=== PATIENT | female | born 1975 | race Caucasian/White ===

== ENCOUNTER → 2017-08-13 | Outpatient (CLI) | payer OTHER ==
[2017-08-13 16:36] LABS: Basophils # (A) 0.1 k/uL (0-0.2); Basophils % (A) 1 %; Eosinophils # (A) 0.2 k/uL (0-0.7); Eosinophils % (A) 2 %; HCT 45.7 % (34.0-46.0); HGB 13.9 gm/dL (11.4-16.0); Lymphocytes % (A) 21 %; MCH 27.5 pg (25.0-35.0); MCHC 30.4 g/dL (31.0-37.0); MCV 90.5 fL (80.0-100.0); Monocytes # (A) 0.6 k/uL (0-1.0); Monocytes % (A) 6 %; Neutrophils # (A) 6.7 k/uL (1.3-7.7); Neutrophils % (A) 68 %; Platelet Count 290 k/uL (150-450); RBC 5.05 m/uL (3.80-5.40); RDW 14.6 % (11.5-15.5); WBC 9.8 k/uL (3.8-10.6)
[2017-08-13 16:56] LABS: ALT 37 U/L (9-52); AST 20 U/L (14-36); Albumin 4.6 g/dL (3.5-5.0); Alkaline Phosphatase 101 U/L (38-126); Anion Gap 10 mmol/L; Blood Urea Nitrogen 19 mg/dL (7-17); Calcium 9.8 mg/dL (8.4-10.2); Carbon Dioxide 29 mmol/L (22-30); Chloride 101 mmol/L (98-107); Glucose 99 mg/dL (74-99); Potassium 4.3 mmol/L (3.5-5.1); Sodium 140 mmol/L (137-145); Total Bilirubin 0.3 mg/dL (0.2-1.3); Total Protein 7.9 g/dL (6.3-8.2)
[2017-08-13 17:13] LABS: T4, Free (Free Thyroxine) 1.13 ng/dL (0.78-2.19)
[2017-08-14 01:27] LABS: DNA Double-Stranded NEGATIVE (NEGATIVE); Gliadin AB IgA, Unit <0.2 U/mL
[2017-08-14 01:51] LABS: Vitamin D 25 Hydroxy 33.1 ng/mL (30.0-100.0)
[2017-08-14 01:52] LABS: Thyroid Peroxidase Antibodies <28.0 U/mL (0.0-60.0)
[2017-08-14 02:37] LABS: Iron Saturation 22.28 (12.00-45.00)
[2017-08-14 05:32] LABS: Streptolysin O Ab(ASO) 191 IU/mL (0-200)
[2017-08-14 05:55] LABS: DHEA Sulfate 336.6 ug/dL (26.0-430.0)
[2017-08-14 08:03] LABS: EBV - EA (IgG) 39.1 U/mL (<9.0)
[2017-08-14 12:29] LABS: Immunoglobulin M 46.9 mg/dL (40.0-280.0)
[2017-08-15 14:11] LABS: Strep DNASE B Antibody 90 U/mL (0-260)
[2017-08-15 16:29] LABS: Bartonella henselae Ab, IgG <1:64; Bartonella henselae Ab, IgM < 1:16
[2017-08-16 22:11] LABS: Herpes simplex I and/or II IgM 0.37 INDEX (<=0.90); Herpes simplex IgG I Ab 3.19 (< or = 0.90); Herpes simplex IgG II Ab 5.95 (< or = 0.90)
[2017-08-17 03:44] LABS: Mycoplasma IgM Antibody 0.23 INDEX (<=0.90)
[2017-08-17 10:18] LABS: Casein IgE Class CLASS 0
[2017-08-17 19:17] LABS: Soybean IgG 8.2 mcg/mL (< 2.0)
[2017-08-17 19:18] LABS: Casein IgG 26.8 mcg/mL (< 2.0); Corn IgG 16.1 mcg/mL (< 2.0); Walnut IgG 10.5 mcg/mL (< 2.0)
[2017-08-17 19:38] LABS: Codfish IgG 12.8 mcg/mL (< 2.0)
[2017-08-17 19:39] LABS: Cow's Milk IgG 73.1 mcg/mL (< 2.0); Peanut IgG 8.6 mcg/mL (< 2.0)
== END | disposition home or self-care (01) ==
LOC: LABWHC1 08-12 16:47
PROVIDERS: ATTEND Nurse Practitioner Family
DX: M35.9 Systemic involvement of connective tissue, unspecified (principal); R53.83 Other fatigue
CPT/HCPCS: 36415; 80053; 81291; 82024; 82139; 82306; 82530; 82533; 82607; 82627; 82728; 82784; 82785; 82787; 83516; 83520; 83540; 83550; 84439; 84443; 84481; 85025; 86001; 86003; 86038; 86060; 86160; 86215; 86225; 86376; 86611; 86628; 86644; 86645; 86663; 86664; 86665; 86666; 86694; 86695; 86696; 86738; 86753; 86790; 86800; 87798; 88184; 88185

== ENCOUNTER → 2018-01-27 | Outpatient (CLI) | payer OTHER ==
--- NOTE | 2018-01-28 07:51 | MM ---
Reason for exam: additional evaluation requested from prior study. Last mammogram was performed 6 months ago. History: Took hormonal contraceptives for 12 years beginning at age 16. Physical Findings: Nurse did not find any significant physical abnormalities on exam. MG 3D Diag Mammo W/Cad GOKUL Bilateral CC and MLO view(s) were taken. Prior study comparison: July 22, 2017, right breast MG 3d diag mammo w/cad RT. January 13, 2017, mammogram, performed at [place]. The breast tissue is heterogeneously dense. This may lower the sensitivity of mammography. Finding: There are typically benign round, regional, grouped calcifications in both breasts, greater in the right breast. There is no discrete abnormality. These results were verbally communicated with the patient and result sheet given to the patient on 01/27/18. ASSESSMENT: Benign, BI-RAD 2 RECOMMENDATION: Routine screening mammogram of both breasts in 1 year.
== END | disposition home or self-care (01) ==
LOC: RADMAMWWP 14:42
PROVIDERS: ATTEND Obstetrics & Gynecology
DX: R92.8 Other abnormal and inconclusive findings on diagnostic imaging of breast (principal)
CPT/HCPCS: 77062; 77066

== ENCOUNTER → 2018-03-17 | Outpatient (CLI) | payer OTHER ==
[2018-03-17 11:48] LABS: HCT 41.5 % (34.0-46.0); HGB 13.2 gm/dL (11.4-16.0); MCH 28.2 pg (25.0-35.0); MCHC 31.8 g/dL (31.0-37.0); MCV 88.8 fL (80.0-100.0); RBC 4.67 m/uL (3.80-5.40)
[2018-03-17 11:49] LABS: Basophils % (A) 1 %; Eosinophils # (A) 0.2 k/uL (0-0.7); Eosinophils % (A) 2 %; Lymphocytes # (A) 1.8 k/uL (1.0-4.8); Lymphocytes % (A) 30 %; Mean Platelet Volume 6.3; Monocytes # (A) 0.4 k/uL (0-1.0); Monocytes % (A) 6 %; Neutrophils # (A) 3.5 k/uL (1.3-7.7); Neutrophils % (A) 58 %; Platelet Count 308 k/uL (150-450); RDW 13.7 % (11.5-15.5)
[2018-03-17 12:03] LABS: ALT 30 U/L (9-52); AST 20 U/L (14-36); Albumin 4.2 g/dL (3.5-5.0); Alkaline Phosphatase 81 U/L (38-126); Anion Gap 8 mmol/L; Blood Urea Nitrogen 20 mg/dL (7-17); Calcium 9.3 mg/dL (8.4-10.2); Carbon Dioxide 29 mmol/L (22-30); Chloride 103 mmol/L (98-107); Glucose 98 mg/dL (74-99); Potassium 4.2 mmol/L (3.5-5.1); Sodium 140 mmol/L (137-145); Total Bilirubin 0.6 mg/dL (0.2-1.3); Total Protein 6.9 g/dL (6.3-8.2)
[2018-03-17 12:19] LABS: T4, Free (Free Thyroxine) 1.12 ng/dL (0.78-2.19)
== END | disposition home or self-care (01) ==
LOC: LABWHC1 10:51
PROVIDERS: ATTEND Nurse Practitioner Family
DX: R19.7 Diarrhea, unspecified (principal); R79.9 Abnormal finding of blood chemistry, unspecified
CPT/HCPCS: 36415; 80053; 82607; 84439; 84443; 85025; 87045; 87046; 87328; 87329

== ENCOUNTER → 2018-06-13 | Outpatient (CLI) | payer OTHER ==
--- NOTE | 2018-06-13 16:59 | XR ---
EXAMINATION TYPE: XR chest 2V DATE OF EXAM: 06/13/2018 COMPARISON: None HISTORY: 42-year-old female cough and congestion, shortness of breath, evaluate for pneumonia TECHNIQUE: Frontal and lateral views FINDINGS: Heart normal size. Aorta and pulmonary vasculature within normal limits. Mild diffuse interstitial pr ominence. No consolidation or pleural effusion. IMPRESSION: Mild interstitial prominence could represent bronchitis or asthma. No focal infiltrate to suggest pne umonia.
== END | disposition home or self-care (01) ==
LOC: RADXRMAIN 13:54
PROVIDERS: ATTEND Internal Medicine Geriatric Medicine
DX: R91.8 Other nonspecific abnormal finding of lung field (principal)
CPT/HCPCS: 71046

== ENCOUNTER → 2019-02-13 | Outpatient (CLI) | payer OTHER ==
--- NOTE | 2019-02-14 10:26 | MM ---
Reason for exam: screening (asymptomatic). Last mammogram was performed 1 year and 1 month ago. History: Took hormonal contraceptives for 12 years beginning at age 16. Physical Findings: A clinical breast exam by your physician is recommended on an annual basis and results should be correlated with mammographic findings. MG 3D Screening Mammo W/Cad Bilateral CC and MLO view(s) were taken. Prior study comparison: January 27, 2018, bilateral MG 3d diag mammo w/cad GOKUL. July 22, 2017, right breast MG 3d diag mammo w/cad RT. The breast tissue is heterogeneously dense. This may lower the sensitivity of mammography. Benign appearing bilateral calcifications. No significant changes when compared with prior studies. ASSESSMENT: Benign, BI-RAD 2 RECOMMENDATION: Routine screening mammogram of both breasts in 1 year.
== END | disposition home or self-care (01) ==
LOC: RADMAMWWP 10:13
PROVIDERS: ATTEND Internal Medicine Geriatric Medicine
DX: Z12.31 Encounter for screening mammogram for malignant neoplasm of breast (principal)
CPT/HCPCS: 77063; 77067

== ENCOUNTER → 2021-07-31 | Outpatient (CLI) | payer OTHER ==
--- NOTE | 2021-07-31 12:44 | MM ---
Reason for exam: clinical finding. Last mammogram was performed 2 years and 5 months ago. History: Patient history of other cancer. Took hormonal contraceptives for 12 years beginning at age 16. Indicated problem(s): pain in the left breast. Physical Findings: Nurse did not find any significant physical abnormalities on exam. MG 3D Diag Mammo W/Cad GOKUL Bilateral CC and MLO view(s) were taken. Prior study comparison: February 13, 2019, bilateral MG 3d screening mammo w/cad. January 27, 2018, bilateral MG 3d diag mammo w/cad GOKUL. The breast tissue is heterogeneously dense. This may lower the sensitivity of mammography. Stable regional calcifications 12 o'clock right breast. Large and round asymmetric density left upper outer quadrant, ultrasound recommended. These results were verbally communicated with the patient and result sheet given to the patient on 07/31/21. ASSESSMENT: Incomplete: need additional imaging evaluation, BI-RAD 0 RECOMMENDATION: Ultrasound of the left breast. upper outer quadrant for density and pain
--- NOTE | 2021-07-31 12:46 | USB ---
Reason for exam: additional evaluation requested from abnormal screening. History: Patient history of other cancer. Took hormonal contraceptives for 12 years beginning at age 16. US Breast Limited LT Left limited breast ultrasound including focal area of concern, retroareolar and axilla demonstrates a 0.5 x 0.8 x 0.4cm cystic lesion at 12 o'clock, large island of dense tissue corresponds to the large asymmetry on mammogram. These results were verbally communicated with the patient and result sheet given to the patient on 07/31/21. ASSESSMENT: Benign, BI-RAD 2 RECOMMENDATION: Routine screening mammogram of both breasts in 1 year. Manage on a clinical basis with regard to left breast pain.
== END | disposition home or self-care (01) ==
LOC: RADMAMWWP 09:27
PROVIDERS: ATTEND Internal Medicine Geriatric Medicine
DX: N60.02 Solitary cyst of left breast (principal); R92.1 Mammographic calcification found on diagnostic imaging of breast; N64.89 Other specified disorders of breast
CPT/HCPCS: 77062; 77066

== ENCOUNTER → 2021-10-21 | Outpatient (CLI) | payer OTHER ==
--- NOTE | 2021-10-21 11:16 | XR ---
EXAMINATION TYPE: XR chest 2V DATE OF EXAM: 10/21/2021 COMPARISON: X-ray dated 06/13/2018 HISTORY: Cough TECHNIQUE: Frontal and lateral views of the chest are obtained. FINDINGS: Questionable minimal left lateral basal linear pulmonary atelectasis. Unremarkable lungs otherwise. N o sizable pleural effusion or definite pneumothorax. No cardiomegaly. Degenerative changes of thoraci c spine. IMPRESSION: No significant pulmonary abnormality identified.
== END | disposition home or self-care (01) ==
LOC: RADXRMAIN 10:42
PROVIDERS: ATTEND Internal Medicine Geriatric Medicine
DX: R05.9 Cough, unspecified (principal)
CPT/HCPCS: 71046

== ENCOUNTER → 2022-02-06 | Outpatient (CLI) | payer OTHER ==
--- NOTE | 2022-02-06 11:50 | US ---
EXAMINATION TYPE: US kidneys/renal and bladder DATE OF EXAM: 02/06/2022 COMPARISON: NONE CLINICAL HISTORY: N13.30 UNSPECIFIED HYDRONEPHROSIS. right sided hydro seen previously, no symptoms t ruben EXAM MEASUREMENTS: Right Kidney: 12.2 x 5.1 x 6.7 cm Left Kidney: 12.7 x 4.6 x 7.3 cm Right Kidney: mild hydronephrosis seen today Left Kidney: No hydronephrosis or masses seen Bladder: wnl Bilateral Jets seen: Yes No nephrolithiasis is seen. No masses are identified. The urinary bladder is anechoic. Bilateral u reteral jets are seen. IMPRESSION: Mild right-sided hydronephrosis noted.
== END | disposition home or self-care (01) ==
LOC: RADUSWWP 11:02
PROVIDERS: ATTEND Internal Medicine Geriatric Medicine
DX: N13.30 Unspecified hydronephrosis (principal)
CPT/HCPCS: 76770

== ENCOUNTER → 2022-02-06 | Outpatient (CLI) | payer OTHER ==
[2022-02-06 13:15] VITALS: BP 132/84; PULSE 82; RESP 16; TEMP 98.3
--- NOTE | 2022-02-06 14:01 | P.GSHP ---
History of Present Illness H&P Date: 02/06/22 Chief Complaint: left breast pain Salud is a 46 year old white female seen in consultation for Dr. Arcos regarding pain in her left breast. She had a bilateral mammogram on 07-31-21 after which a left breast ultrasound was done. this was done the same day and showed a 0.8 x 0.4 cm cystic lesion at 12:00 as well as a large island of dense tissue corresponding to asymmetry seen on mammogram. The patient states she has left breast pain which started in June 2021, which was related to her period. This was right before her period and is in the upper outer quadrant of the breast. Today she is not complaining of any pain. The pain is described as aching in nature. It is better with heat. Second plane of any nipple discharge or skin changes. She is not complaining of any trauma or infection in the breast. She's never had any surgery on her breast. She does note that she received batsheva COVID vaccination in the left arm schedule months prior to developing the pain in the left breast. Caffiene: none nicotine: none chocolate: occasional BCP: 15 to 26; hormones: none periods regular Family History: none HOrmonal History: menarche: 13 , breaset fed: yes age at first : 30 periods regular Surgical History: gallbaldder Medical History: kidney stone Social History: nicotine: none alcohol: occasional drugs: none - Constitutional Constitutional: Denies chills, Denies fever - EENT Eyes: denies blurred vision, denies pain Ears: deny: decreased hearing, tinnitus Ears, nose, mouth and throat: Denies headache, Denies sore throat - Breasts Breasts: bilateral: as per HPI - Cardiovascular Cardiovascular: Denies chest pain, Denies shortness of breath - Respiratory Respiratory: Denies cough, Denies 7 - Gastrointestinal Gastrointestinal: Denies abdominal pain, Denies diarrhea, Denies nausea, Denies vomiting - Genitourinary (Female) Genitourinary: Reports kidney stones, Denies dysuria, Denies hematuria - Menstruation Menstruation: Reports period normal - Musculoskeletal Comment: sciatica Musculoskeletal: Denies myalgias - Integumentary Integumentary: Denies pruritus, Denies rash - Neurological Neurological: Denies numbness, Denies weakness - Psychiatric Psychiatric: Reports anxiety, Denies depression - Endocrine Endocrine: Reports weight change, Denies fatigue - Hematologic/Lymphatic Comment: none - Allergic/Immunologic Allergic/Immunologic: Reports seasonal allergies Past Medical History Additional Past Medical History / Comment(s): covid History of Any Multi-Drug Resistant Organisms: None Reported Past Surgical History: Cholecystectomy Past Psychological History: No Psychological Hx Reported Smoking Status: Never smoker Past Alcohol Use History: None Reported Past Drug Use History: None Reported Medications and Allergies Home Medications Medication Instructions Recorded Confirmed Type Amitriptyline HCl 10 mg PO DAILY 02/06/22 02/06/22 History Cholecalciferol [Vitamin D3 (25 25 mcg PO DAILY 02/06/22 02/06/22 History Mcg = 1000 Iu)] L.acidoph,Paracasei, B.lactis 1 cap PO DAILY 02/06/22 02/06/22 History [Probiotic] valACYclovir HCL [Valacyclovir] 500 mg PO DAILY 02/06/22 02/06/22 History Allergies Allergy/AdvReac Type Severity Reaction Status Date / Time No Known Allergies Allergy Verified 02/06/22 13:08 Surgical - Exam Vital Signs Temp Pulse Resp BP Pulse Ox 98.3 F 82 16 132/84 95 02/06/22 13:12 02/06/22 13:12 02/06/22 13:12 02/06/22 13:12 02/06/22 13:12 BMI: 34.3 - General no distress - Eyes normal ocular movement - Neck trachea midline - Respiratory normal respiratory effort, clear to auscultation - Cardiovascular Rhythm: regular Heart Sounds: normal: S1, S2 - Abdomen Abdomen: soft, non tender, no guarding, no rigid, no rebound - Integumentary normal turgor - Neurologic no disoriented, no combative - Musculoskeletal normal gait, normal posture - Psychiatric oriented to time, oriented to person, oriented to place, speech is normal, memory intact Breast Exam: BRA: 38D Inspection: Bilateral grade 1/2 ptosis Palpation: Right breast: Multi-positional exam no dominant masses or nodules of concern Right axilla: No adenopathy of concern Left breast: Multi-positional exam no dominant masses or nodules of concern Left axilla: No adenopathy of concern Results Mammogram and ultrasound results reviewed Assessment and Plan Assessment: Impression: Cyclical breast pain; left breast 12:00 to upper outer quadrant Fibrocystic breast changes Bilateral mammogram and ultrasound performed in July 2021 benign Plan: Patient is given a book on breast pain Avoid caffeine patient does not drink caffeine at this time Consider primrose oil Motrin as needed when patient has discomfort Bilateral mammogram and ultrasound of the left breast to be repeated in July 2022 with appointment at that time If patient continues to pain would like to see her sooner Cc: Dr. Arcos
== END ==
LOC: WWCWWP 11:04
PROVIDERS: ATTEND Surgery
DX: N60.12 Diffuse cystic mastopathy of left breast (principal)

== ENCOUNTER → 2022-03-18 | Outpatient (CLI) | payer OTHER ==
--- NOTE | 2022-03-18 20:45 | CT ---
EXAMINATION TYPE: CT urogram wo/w con CT DLP: 4055 mGycm, Automated exposure control for dose reduction was used. DATE OF EXAM: 03/18/2022 5:38 PM COMPARISON: Ultrasound kidneys 02/06/2021 CLINICAL INDICATION:Female, 46 years old with history of R10.9 R Flank pain R31.0 Gross hematuria; Gr oss hematuria TECHNIQUE: Urogram with imaging of the abdomen and pelvis. Coronal and sagittal reformats were performed. 2D and 3D reconstructions are performed to assist visualization of the urinary tract on a separate workstat ion. Contrast used:100 ml mL of Isovue 300 without and with IV Contrast, Oral contrast used: None. FINDINGS: GENITOURINARY: RIGHT KIDNEY AND URETER: No calculi. No hydronephrosis or hydroureter. No renal mass or other lesions . Limited distal right ureter secondary to lack of excreted IV contrast with fat said urothelial lesi ons: no filling defect, dilation, stricture or wall thickening. LEFT KIDNEY AND URETER: No calculi. No hydronephrosis or hydroureter. No renal mass or other lesions. No urothelial lesions: no filling defect, dilation, stricture or wall thickening. URINARY BLADDER: Limited evaluation of bladder secondary to lack of IV contrast. Normal, no calculi, mass or other lesions. REPRODUCTIVE: Unremarkable. ABDOMEN LIVER: Unremarkable. GALLBLADDER AND BILE DUCTS: Gallbladder is surgically absent. PANCREAS: Unremarkable. SPLEEN: Unremarkable. ADRENAL GLANDS: Unremarkable. STOMACH AND BOWEL: Few scattered clonic diverticula are present. No evidence of bowel obstruction. Ap pendix is normal. PERITONEUM: No evidence of pneumoperitoneum, free fluid, or adenopathy. VASCULATURE: No aortic aneurysm. MUSCULOSKELETAL: Mild multilevel disc degeneration changes of the spine.. SOFT TISSUE/ABDOMINAL WALL: Large fat-containing umbilical hernia measuring 3.9 cm at the neck. LOWER CHEST: No significant findings. IMPRESSION: 1. No evidence of urolithiasis or renal/urothelial neoplasm. 2. Colonic diverticulosis 3. Large fat-containing umbilical hernia.
== END | disposition home or self-care (01) ==
LOC: RADCTMAIN 14:24
PROVIDERS: ATTEND Urology
DX: K42.9 Umbilical hernia without obstruction or gangrene (principal); K57.30 Diverticulosis of large intestine without perforation or abscess without bleeding
CPT/HCPCS: 74178; 74400; Q9967

== ENCOUNTER → 2022-08-03 | Outpatient (CLI) | payer OTHER ==
--- NOTE | 2022-08-03 15:03 | MM ---
Reason for Exam: Follow-up at short interval from prior study. Last screening mammogram was performed 12 month(s) ago. Patient History: Menarche at age 13. First Full-Term at age 30. Patient has history of breast feeding. Hormonal Contraceptives for 12 years from age 16 until age 28. Last menstrual period: 07/16/2022 Risk Values: Dolores 5 year model risk: 0.9%. NCI Lifetime model risk: 10.6%. Prior Study Comparison: 01/27/2018 Bilateral Diagnostic Mammogram, [facility]. 02/13/2019 Bilateral Screening Mammogram, [facility]. 07/31/2021 Bilateral Diagnostic Mammogram, [facility]. Tissue Density: The breast tissue is heterogeneously dense. This may lower the sensitivity of mammography. Findings: Analyzed By CAD. There are loosely grouped benign-appearing round calcifications in the right breast redemonstrated. There are increasing heterogeneous calcifications in the left breast middle depth upper aspect. Additional views show some layering of the anterior calcifications but a persistent roughly 1.5 cm grouped calcifications that do not definitively layer and are more suspicious. Overall Assessment: Suspicious, BI-RAD 4 Management: Stereotactic Core Biopsy of the left breast. Calcifications sampling left breast. Results were given to the patient verbally at the time of exam. Electronically signed and approved by: Vinny Mckeon M.D.
--- NOTE | 2022-08-03 15:05 | USB ---
Reason for Exam: Additional evaluation requested from abnormal screening. Patient History: Menarche at age 13. First Full-Term at age 30. Patient has history of breast feeding. Hormonal Contraceptives for 12 years from age 16 until age 28. Risk Values: Dolores 5 year model risk: 0.9%. NCI Lifetime model risk: 10.6%. Technique: Method: Targeted. Prior Study Comparison: 01/27/2018 Bilateral Diagnostic Mammogram, [facility]. 02/13/2019 Bilateral Screening Mammogram, [facility]. 07/31/2021 Bilateral Diagnostic Mammogram, [facility]. Findings: The upper outer quadrant of the left breast, the axilla of the left breast and the retroareolar of the left breast were scanned. Targeted left breast ultrasound redemonstrates a lobulated 7 x 5 x 6 mm thin-walled cyst or cystic lesion 12:00 position 4 cm distance from nipple fairly stable in size and appearance from prior study. Additional tiny thin-walled cysts are seen on background dense tissue. No worrisome new solid or cystic mass. Overall Assessment: Benign, BI-RAD 2 Management: Screening Mammogram of both breasts in 1 year. A clinical breast exam by your physician is recommended on an annual basis and results should be correlated with mammographic findings. This exam should not preclude additional follow-up of suspicious palpable abnormalities. Results were given to the patient verbally at the time of exam. Electronically signed and approved by: Vinny Mckeon M.D.
== END | disposition home or self-care (01) ==
LOC: RADMAMWWP 13:36
PROVIDERS: ATTEND Surgery
DX: R92.8 Other abnormal and inconclusive findings on diagnostic imaging of breast (principal)
CPT/HCPCS: 77062; 77066

== ENCOUNTER → 2022-08-13 | Day surgery (SDC) | payer OTHER ==
[2022-08-13 07:37] VITALS: RESP 16
[2022-08-13 08:55] VITALS: BP 156/91; PULSE 89; TEMP 98.3
--- NOTE | 2022-08-19 10:23 | MM ---
Risk Values: Dolores 5 year model risk: 0.9%. NCI Lifetime model risk: 10.6%. Prior Study Comparison: 02/13/2019 Bilateral Screening Mammogram, [facility]. 07/31/2021 Bilateral Diagnostic Mammogram, [facility]. 08/03/2022 Bilateral MG 3D diag mammo w/cad GOKUL, [facility]. Pathology Description: Marker Left Behind. Specimen Radiograph. Approach: Lateral to Medial Needle Type: Eviva Cores: 6 Skin Nicks: 1 Gauge: 9 The procedure of stereotactic guided core biopsy was explained to the patient. Benefits, alternatives, and risks were discussed. An informed consent was then obtained. A timeout was performed. The shortness pathway for biopsy was chosen. Shortness pathway was lateral to medial approach. Targeting was provided by radiology. The procedure was performed by radiology. A vacuum assisted biopsy gun was used to obtain 6 core samples. The patient tolerated the procedure well without any immediate complication. The patient was kept in the radiology department for short stay after the procedure and then discharged home in stable condition. Specimen: Targeted calcifications are identified in specimen mammogram. Mammogram: Post biopsy mammogram shows the clip to appear in satisfactory position relative to the targeted area of concern on the preprocedure images. Impression: 1 successful stereotactic core biopsy left breast calcifications. Pathology Results: Result: Benign, Fibrocystic change. LEFT BREAST, STEREOTACTIC NEEDLE CORE BIOPSY: Fibrocystic changes including cysts, fibrosis, sclerosing adenosis, columnar cell change and calcifications. Overall Assessment: Benign Management: Diagnostic Mammogram of the left breast in 5 months. Electronically signed and approved by: Rojelio Marshall D.O. Radiologis
== END ==
LOC: RADMAMWWP 07:20
PROVIDERS: ATTEND Surgery
DX: N60.22 Fibroadenosis of left breast (principal); R92.8 Other abnormal and inconclusive findings on diagnostic imaging of breast; N60.12 Diffuse cystic mastopathy of left breast
CPT/HCPCS: 88305; 19081; A4648; J2001

== ENCOUNTER → 2022-08-20 | Outpatient (CLI) | payer OTHER ==
[2022-08-20 15:42] VITALS: BP 146/84; PULSE 77; RESP 17; TEMP 98.9
--- NOTE | 2022-08-20 15:54 | P.PN ---
Subjective Progress Note Date: 08/20/22 Principal diagnosis: fibrocystic breast changes Salud is a 46 year old white female seen in consultation for Dr. Arcos regarding pain in her left breast. She had a bilateral mammogram on 07-31-21 after which a left breast ultrasound was done. this was done the same day and showed a 0.8 x 0.4 cm cystic lesion at 12:00 as well as a large island of dense tissue corresponding to asymmetry seen on mammogram. She had a bilateral mammogram done on 08-03-22 after which a stero biopsy of hte right breast was recommended. This was done on 08-13-22, and was benign concordant. Prior to the biopsy she did not feel any Specimen masses or nodules concern in either breast. Following the biopsy at 12 o'clock position of the left breast there is a fullness. Caffiene: none nicotine: none chocolate: occasional BCP: 15 to 26; hormones: none periods regular Family History: none HOrmonal History: menarche: 13 , breaset fed: yes age at first : 30 periods regular Surgical History: gallbaldder Medical History: kidney stone Social History: nicotine: none alcohol: occasional drugs: none - Constitutional Constitutional: Denies chills, Denies fever - EENT Eyes: denies blurred vision, denies pain Ears: deny: decreased hearing, tinnitus Ears, nose, mouth and throat: Denies headache, Denies sore throat - Breasts Breasts: bilateral: as per HPI - Cardiovascular Cardiovascular: Denies chest pain, Denies shortness of breath - Respiratory Respiratory: Denies cough, Denies 7 - Gastrointestinal Gastrointestinal: Denies abdominal pain, Denies diarrhea, Denies nausea, Denies vomiting - Genitourinary (Female) Genitourinary: Reports kidney stones, Denies dysuria, Denies hematuria - Menstruation Menstruation: Reports period normal - Musculoskeletal Comment: sciatica Musculoskeletal: Denies myalgias - Integumentary Integumentary: Denies pruritus, Denies rash - Neurological Neurological: Denies numbness, Denies weakness - Psychiatric Psychiatric: Reports anxiety, Denies depression - Endocrine Endocrine: Reports weight change, Denies fatigue - Hematologic/Lymphatic Comment: none - Allergic/Immunologic Allergic/Immunologic: Reports seasonal allergies Past Medical History Additional Past Medical History / Comment(s): covid History of Any Multi-Drug Resistant Organisms: None Reported Past Surgical History: Cholecystectomy Past Psychological History: No Psychological Hx Reported Smoking Status: Never smoker Past Alcohol Use History: None Reported Past Drug Use History: None Reported Medications and Allergies Home Medications Medication Instructions Recorded Confirmed Type Amitriptyline HCl 10 mg PO DAILY 02/06/22 02/06/22 History Cholecalciferol [Vitamin D3 (25 25 mcg PO DAILY 02/06/22 02/06/22 History Mcg = 1000 Iu)] L.acidoph,Paracasei, B.lactis 1 cap PO DAILY 02/06/22 02/06/22 History [Probiotic] valACYclovir HCL [Valacyclovir] 500 mg PO DAILY 02/06/22 02/06/22 History Allergies Allergy/AdvReac Type Severity Reaction Status Date / Time No Known Allergies Allergy Verified 02/06/22 13:08 Objective - Vital Signs Vital signs: Vital Signs Temp 98.9 F 08/20/22 15:40 Pulse 77 08/20/22 15:40 Resp 17 08/20/22 15:40 BP 146/84 08/20/22 15:40 Pulse Ox 98 08/20/22 15:40 FiO2 Intake & Output 08/19/22 08/20/22 08/20/22 18:59 06:59 18:59 Weight 115.666 kg - Constitutional General appearance: Present: cooperative - EENT Eyes: Present: EOMI ENT: Present: hearing grossly normal - Neck Neck: Present: normal ROM - Respiratory Respiratory: bilateral: CTA - Cardiovascular Rhythm: regular Heart sounds: normal: S1, S2 - Gastrointestinal General gastrointestinal: Present: soft - Integumentary Integumentary: Present: normal turgor - Musculoskeletal Musculoskeletal: Present: gait normal - Psychiatric Psychiatric: Present: A&O x's 3, appropriate affect, intact judgment & insight - Additional findings Additional findings: Breast Exam: BRA: 38D Inspection: Bilateral grade 1/2 ptosis Palpation: Right breast: Multi-positional exam no dominant masses or nodules of concern Right axilla: No adenopathy of concern Left breast: Multi-positional exam no dominant masses or nodules of concern, hemtoma at the site of the biopsy Left axilla: No adenopathy of concern Assessment and Plan Assessment: Impression: Fibrocystic breast changes Recent stereotactic core biopsy felt to be benign concordant on [id number] 922 of the left breast Plan: Left breast mammogram in 6 months with physician exam at that time Bilateral mammogram in 1 year CC: Dr. Arcos
== END ==
LOC: WWCWWP 15:17
PROVIDERS: ATTEND Surgery
DX: R92.8 Other abnormal and inconclusive findings on diagnostic imaging of breast (principal); U07.1 COVID-19

== ENCOUNTER → 2023-02-17 | Outpatient (CLI) | payer OTHER ==
--- NOTE | 2023-02-17 13:55 | MM ---
Reason for Exam: Follow-up at short interval from prior study. Last screening mammogram was performed 7 month(s) ago. Patient History: Menarche at age 13. First Full-Term at age 30. Patient has history of breast feeding. Hormonal Contraceptives for 12 years from age 16 until age 28. 08/13/2022, Benign MG stereo VAD BX LT on the left side. Last menstrual period: 02/05/2023 Risk Values: Dolores 5 year model risk: 1.4%. NCI Lifetime model risk: 12.5%. Prior Study Comparison: 02/13/2019 Bilateral Screening Mammogram, [facility]. 07/31/2021 Bilateral Diagnostic Mammogram, [facility]. 08/03/2022 Bilateral MG 3D diag mammo w/cad GOKUL, [facility]. Tissue Density: Left: The breast tissue is heterogeneously dense. This may lower the sensitivity of mammography. Findings: Analyzed By CAD. Postbiopsy changes left breast. No suspicious calcifications seen. No evidence of mass. Overall Assessment: Benign, BI-RAD 2 Management: Screening Mammogram of both breasts in 6 months. . Results were given to the patient verbally at the time of exam. Patient should continue monthly self-breast exams. A clinical breast exam by your physician is recommended on an annual basis. This exam should not preclude additional follow-up of suspicious palpable abnormalities. Note on Dolores scores and lifetime risk: 1. A Dolores score greater than 3% is considered moderate risk. If this is the case, consider specialist referral to assess eligibility for a risk reducing agent. 2. If overall lifetime risk for the development of breast cancer is 20% or higher, the patient may qualify for future screening with alternating mammogram and breast MRI. Electronically signed and approved by: Jose Enrique Razo M.D. Radiologis
== END | disposition home or self-care (01) ==
LOC: RADMAMWWP 13:00
PROVIDERS: ATTEND Surgery
DX: R92.8 Other abnormal and inconclusive findings on diagnostic imaging of breast (principal)
CPT/HCPCS: 77061; 77065

== ENCOUNTER → 2023-08-23 | Outpatient (CLI) | payer OTHER ==
--- NOTE | 2023-08-23 17:34 | MM ---
Reason for Exam: Screening (asymptomatic). Last mammogram was performed 1 year(s) and 1 month(s) ago. Patient History: Menarche at age 13. First Full-Term at age 30. Premenopausal. Patient has history of breast feeding. Hormonal Contraceptives for 12 years from age 16 until age 28. 08/13/2022, Benign MG stereo VAD BX LT on the left side. Last menstrual period: 08/07/2023 Risk Values: Dolores 5 year model risk: 1.4%. NCI Lifetime model risk: 12.5%. Prior Study Comparison: 01/02/2017 Screening Mammogram, [place]. 01/13/2017 Screening Mammogram, [place]. 07/22/2017 Right Diagnostic Mammogram, [facility]. 01/27/2018 Bilateral Diagnostic Mammogram, [facility]. 02/13/2019 Bilateral Screening Mammogram, [facility]. 07/31/2021 Bilateral Diagnostic Mammogram, [facility]. 08/03/2022 Bilateral MG 3D diag mammo w/cad GOKUL, [facility]. 02/17/2023 Left MG 3D diag mammo w/cad LT, [facility]. Tissue Density: The breast tissue is heterogeneously dense. This may lower the sensitivity of mammography. Findings: Analyzed By CAD. Regional punctate calcifications are unchanged. Microclip left breast from prior biopsy. There is no suspicious group of microcalcifications or new suspicious mass in either breast. Overall Assessment: Benign, BI-RAD 2 Management: Screening Mammogram of both breasts in 1 year. . Patient should continue monthly self-breast exams. A clinical breast exam by your physician is recommended on an annual basis. This exam should not preclude additional follow-up of suspicious palpable abnormalities. Note on Dolores scores and lifetime risk: 1. A Dolores score greater than 3% is considered moderate risk. If this is the case, consider specialist referral to assess eligibility for a risk reducing agent. 2. If overall lifetime risk for the development of breast cancer is 20% or higher, the patient may qualify for future screening with alternating mammogram and breast MRI. Electronically signed and approved by: Estela Velasquez M.D. Radiologist
== END | disposition home or self-care (01) ==
LOC: RADMAMWWP 09:03
PROVIDERS: ATTEND Surgery
DX: Z12.31 Encounter for screening mammogram for malignant neoplasm of breast (principal)
CPT/HCPCS: 77063; 77067

== ENCOUNTER → 2024-08-29 | Outpatient (CLI) | payer OTHER ==
--- NOTE | 2024-08-30 08:15 | MM ---
Reason for Exam: Screening (asymptomatic). Last screening mammogram was performed 12 month(s) ago. Patient History: Menarche at age 13. First Full-Term at age 30. Premenopausal. Patient has history of breast feeding. Hormonal Contraceptives for 12 years from age 16 until age 28. 08/13/2022, Benign MG stereo VAD BX LT on the left side. Risk Values: Dolores 5 year model risk: 1.4%. NCI Lifetime model risk: 12.3%. Prior Study Comparison: 08/03/2022 Bilateral MG 3D diag mammo w/cad GOK[facility], [facility]. 02/17/2023 Left MG 3D diag mammo w/cad LT, [facility]. 08/23/2023 Bilateral MG 3D screening mammo w/cad, [facility]. Tissue Density: The breasts are heterogeneously dense, which may obscure small masses. Findings: Analyzed By CAD. Mammotome biopsy in the left breast redemonstrated. There are persistent loosely grouped tiny benign-appearing round calcifications in the right breast redemonstrated. There are persistent few scattered tiny benign-appearing round calcifications in the left breast redemonstrated. Benign-appearing bilateral axillary lymph nodes again seen. There is no suspicious new group of microcalcifications or new suspicious mass in either breast. Overall Assessment: Benign, BI-RAD 2 Management: Screening Mammogram of both breasts in 1 year. . Patient should continue monthly self-breast exams. A clinical breast exam by your physician is recommended on an annual basis. This exam should not preclude additional follow-up of suspicious palpable abnormalities. Note on Dolores scores and lifetime risk: 1. A Dolores score greater than 3% is considered moderate risk. If this is the case, consider specialist referral to assess eligibility for a risk reducing agent. 2. If overall lifetime risk for the development of breast cancer is 20% or higher, the patient may qualify for future screening with alternating mammogram and breast MRI. [facility], , 08/30/2024 8:11 AM. Electronically signed and approved by: Vinny Mckeon M.D.
== END | disposition home or self-care (01) ==
LOC: RADMAMWWP 16:28
PROVIDERS: ATTEND Internal Medicine Geriatric Medicine
DX: Z12.31 Encounter for screening mammogram for malignant neoplasm of breast (principal); R92.333 Mammographic heterogeneous density, bilateral breasts
CPT/HCPCS: 77063; 77067

== ENCOUNTER → 2025-01-31 | Outpatient (CLI) | payer OTHER ==
--- NOTE | 2025-01-31 10:26 | US ---
EXAMINATION TYPE: US venous doppler duplex LE LT DATE OF EXAM: 01/31/2025 9:28 AM COMPARISON: NONE CLINICAL INDICATION: Female, 49 years old with history of R22.42 Swelling Left leg with mass; No hx o f DVT. Patient does not take blood thinners. Swelling x a couple weeks. TECHNIQUE: The lower extremity deep venous system is examined utilizing real time linear array sonog dick with graded compression, color doppler sonography, and spectral doppler. SIDE PERFORMED: Left FINDINGS: VESSELS IMAGED: Common Femoral Vein Deep Femoral Vein Greater Saphenous Vein * Femoral Vein Popliteal Vein Small Saphenous Vein * Proximal Calf Veins (* superficial vessels) Left Leg: No evidence of DVT. Appropriate venous spectral waveforms. No evidence for occlusion. No f illing defects. IMPRESSION: No evidence for deep vein tendinosis. [facility], , 01/31/2025 10:23 AM
== END | disposition home or self-care (01) ==
LOC: RADUSWWP 09:11
PROVIDERS: ATTEND Nurse Practitioner Family
DX: R22.42 Localized swelling, mass and lump, left lower limb (principal)